=== PATIENT | male | born 1990 | race African-American/Black ===

== ENCOUNTER 2021-06-16 09:31 | Emergency (ER) | payer SELFPAY ==
--- NOTE | ~2021-06-16 | XR_ITS ---
EXAMINATION: XR knee LT min 4V DATE: 06/16/2021 10:23 INDICATION: Lateral left knee pain post injury 8 days prior TECHNIQUE: Anteroposterior, 2 oblique and crosstable lateral views of the left knee were obtained COMPARISON: None. FINDINGS: Alignment is normal. No fracture. Spaces appear normal on nonweightbearing imaging. Small left knee joint effusion without evident layering lipohemarthrosis. Diffuse subcutaneous edema about the left k nee most prominent anteriorly and laterally. IMPRESSION: 1. Small left knee joint effusion. No acute osseous abnormality. Reviewed, dictated and finalized at location A. [employer]
[2021-06-16 09:48] VITALS: BP 144/82; PULSE 85; RESP 16; TEMP 37.6; O2SAT 98
--- NOTE | 2021-06-16 10:01 | ED.LOWEXIN ---
HPI - Extremity Injury (Lower) General Chief Complaint: Extremity Injury, Lower Stated Complaint: Swollen left Knee Time Seen by Provider: 06/16/21 10:01 Source: patient and RN notes reviewed Mode of arrival: ambulatory Limitations: no limitations History of Present Illness HPI Narrative: 31-year-old male presents to the [facility] with complaints of swollen left knee. Patient states that he stepped in a hole day before [place] and its been swollen since. Has tried Tylenol but states he is here visiting/working and is having trouble walking on it today Related Data Allergies Allergy/AdvReac Type Severity Reaction Status Date / Time No Known Allergies Allergy Verified 06/16/21 10:45 Review of Systems Review of Systems: All systems reviewed & are unremarkable except as noted in HPI and below Constitutional: Constitutional: Reports no additional constitutional complaints, Denies chills and Denies fever(s) Eyes: Eyes: Reports no additional eye complaints ENT: Reports system reviewed and no additional complaints, except as documented Cardiovascular: Cardiovascular: Reports no additional cardiovascular complaints, Denies chest pain and Denies radiating jaw, neck or arm pain Respiratory: Respiratory: Reports no additional respiratory complaints, Denies cough, Denies dyspnea and Denies wheezing Gastrointestinal: Gastrointestinal: Reports no additional gastrointestinal complaints Musculoskeletal: Musculoskeletal: Reports as per HPI and Reports joint swelling (Left knee) Integumentary/Breasts: Skin/Breast: Reports system reviewed and no additional complaints, except as docu and Denies rash Neurologic: Reports system reviewed and no additional complaints, except as documented Psychiatric: Psychiatric: Reports no additional psychiatric complaints Allergic/Immunologic: Allergic/Immunologic: Reports no additional allergic/immunologic complaints PMFSH Past Medical History Medical History (Updated 06/16/21 @ 14:29 by Lmia Gill) Patient denies medical problems Surgical History Surgical History (Updated 06/16/21 @ 14:29 by Lima Gill) No significant past surgical history Social History Social History (Updated 06/16/21 @ 14:29 by Lima Gill) Gender identity (if verbalized by the patient): Male Comments At the time of my signature, I reviewed and agree with the nursing past medical, surgical, social, and family history. There is no relevant family history pertinent to the patient complaint. Exam Const: General: healthy appearing, no acute distress and alert Nutritional Appearance: well nourished and obese Orientation/consciousness: patient oriented x3 Limitations: no limitations HENMT: Head: normal to inspection Ears: external ears normal Eyes: Pupils: Equal, round and reactive pupils present Neck: Neck: normal visual inspection, no lymphadenopathy and no meningeal signs Chest: Chest palpation & inspection: normal inspection of the chest Resp: Effort & Inspection: normal respiratory effort Auscultation: clear to auscultation bilaterally Cardio: Rate: regular rate Rhythm: regular rhythm Back/Spine/Pelvis: Back: no CVA tenderness Skin: General skin exam: normal color Rashes: no rashes Wounds: no wounds Neuro: General: patient oriented x3, moves all extremities, no meningeal signs and no focal motor deficits Speech: normal speech Gait exam (Neuro): Normal gait present Extrem: General: full ROM, capillary refill normal and normal exam except as noted Left lower extremity: knee Details: tenderness (Lateral aspect), swelling Location: of the patella, normal ROM and knee ligament exam normal Details: anterior drawer test normal (Normal) Knee images: 1. Moderate amount of swelling Psych: Appearance: grossly normal and well kempt Mental Status: mental status grossly normal Affect: normal affect Attitude: cooperative Thought content: Yes Normal thought content present Course
== END 2021-06-16 10:56 | disposition home or self-care (01) ==
PROVIDERS: Emergency Provider Nurse Practitioner
DX: M25.462 Effusion, left knee (principal)
CPT/HCPCS: 73564; 99203; G0463